=== PATIENT | female | born 1950 | race Caucasian/White ===

== ENCOUNTER 2016-08-26 03:32 | Emergency (ER) | payer SELFPAY, OTHER ==
[2016-08-26] MEDS ORDERED: Nitroglycerin 2% Ointment 1 INCH/1 GM Packet ONE (04:15)
[2016-08-26] MEDS ORDERED: Ondansetron HCl/PF 4 MG/2 ML Vial ONE (04:21)
[2016-08-26] MEDS ORDERED: Lorazepam 2 MG/ML VIAL ONE (04:28)
[2016-08-26 04:30] LABS: #Basophils 0.1 thou/uL (0.0-0.2); #Eosinphils 0.4 thou/uL (0.0-0.7); #Lymphocytes 2.4 thou/uL (1.20-3.40); #Monocytes 0.6 thou/uL (0.11-0.59); #Neutrophils 4.9 thou/uL (1.40-6.50); %Basophils 1.1 % (0.0-1.0); %Eosinophils 4.3 % (0.0-10.0); %Lymphocytes 28.5 % (21.0-51.0); %Monocytes 7.5 % (0.0-10.0); %Neutrophils 58.6 % (42.0-75.0); Hemoglobin 13.5 g/dL (12.0-16.0); Mean Corpuscular HGB CONC 33.8 g/dL (32.0-36.0); Mean Corpuscular Hemoglobin 29.3 pg (27.0-31.0); Mean Corpuscular Volume 86.7 fl (81.0-99.0); Platelet Count 258 thou/uL (130-400); RBC Distribution Width 12.3 % (11.5-14.5); Red Blood Cell (RBC) Count 4.61 mill/uL (4.20-5.40); White Blood Cell (WBC) Count 8.4 thou/uL (4.8-10.8)
[2016-08-26 04:39] LABS: ALT (SGPT) 34 U/L (0-55); AST (SGOT) 19 U/L (5-34); Albumin 4.5 g/dL (3.4-4.8); Alkaline Phosphatase 127 U/L (40-150); Anion Gap 15 mmol/L (10-20); BUN (Urea Nitrogen) 18 mg/dL (9.8-20.1); Calc. Creatinine Clearance 0 mL/min (70-130); Calcium 9.4 mg/dL (7.8-10.44); Carbon Dioxide 25 mmol/L (23-31); Chloride 105 mmol/L (98-107); Estimated GFR-MDRD 71; Globulin 2.3 g/dL (2.4-3.5); Glucose 118 mg/dL (80-115); Potassium 3.5 mmol/L (3.5-5.1); Protein, Total 6.8 g/dL (5.8-8.1); Sodium 141 mmol/L (136-145)
[2016-08-26 04:41] LABS: CKMB 2.3 ng/mL (0-6.6); Troponin I Less than 0.010 ng/mL (< 0.028)
--- NOTE | 2016-08-26 07:58 | RAD ---
PORTABLE CHEST ONE VIEW 08/26/2016 at 4:01 a.m.: HISTORY: Chest pain. FINDINGS: Comparison is made with exam of 03/31/2016. There is continued elevation of the right hemidiaphragm. The heart is enlarged. No confluent areas of consolidation, pneumothorax, juana pleural edema, or pleural effusions are seen. IMPRESSION: No acute process. POS: [facility]
== END 2016-08-26 05:14 | disposition short-term general hospital (02) ==
LOC: MADERS 03:32
DX: I24.9 Acute ischemic heart disease, unspecified (principal); I10 Essential (primary) hypertension; E78.5 Hyperlipidemia, unspecified; I25.2 Old myocardial infarction; Z79.899 Other long term (current) drug therapy
CPT/HCPCS: 71010; 80053; 82553; 83880; 84484; 85025; 85730; 93005; 96374; 96375; J2060; J2405

== ENCOUNTER 2016-10-18 08:24 | Inpatient (IN) | payer OTHER ==
[2016-10-18] MEDS ORDERED: Sodium Chloride 0.9% 1,000 ML BAG ONE (08:47)
[2016-10-18] MEDS ORDERED: Lorazepam 2 MG/ML VIAL ONE (08:59)
[2016-10-18 09:17] LABS: #Basophils 0.1 thou/uL (0.0-0.2); #Lymphocytes 0.8 thou/uL (1.20-3.40); #Monocytes 0.5 thou/uL (0.11-0.59); #Neutrophils 3.3 thou/uL (1.40-6.50); %Basophils 1.2 % (0.0-1.0); %Eosinophils 0.3 % (0.0-10.0); %Lymphocytes 17.4 % (21.0-51.0); %Monocytes 10.4 % (0.0-10.0); %Neutrophils 70.6 % (42.0-75.0); ALT (SGPT) 47 U/L (0-55); AST (SGOT) 36 U/L (5-34); Albumin 4.2 g/dL (3.4-4.8); Alkaline Phosphatase 102 U/L (40-150); Anion Gap 16 mmol/L (10-20); BUN (Urea Nitrogen) 12 mg/dL (9.8-20.1); Calc. Creatinine Clearance 0 mL/min (70-130); Calcium 9.1 mg/dL (7.8-10.44); Carbon Dioxide 21 mmol/L (23-31); Chloride 104 mmol/L (98-107); Estimated GFR-MDRD 70; Globulin 2.6 g/dL (2.4-3.5); Glucose 125 mg/dL (80-115); Hemoglobin 13.8 g/dL (12.0-16.0); Mean Corpuscular HGB CONC 34.5 g/dL (32.0-36.0); Mean Corpuscular Hemoglobin 29.9 pg (27.0-31.0); Mean Corpuscular Volume 86.6 fl (81.0-99.0); Mean Platelet Volume 6.8 fL (7.4-10.4); Platelet Count 192 thou/uL (130-400); Potassium 4.1 mmol/L (3.5-5.1); Protein, Total 6.8 g/dL (5.8-8.1); Red Blood Cell (RBC) Count 4.61 mill/uL (4.20-5.40); Sodium 137 mmol/L (136-145); White Blood Cell (WBC) Count 4.6 thou/uL (4.8-10.8)
[2016-10-18] MEDS ORDERED: Ketorolac Tromethamine 30 MG/ML VIAL ONE (10:00)
[2016-10-18] MEDS ORDERED: Acetaminophen 500 MG TAB ONE (10:01)
--- NOTE | 2016-10-18 10:24 | CT ---
EXAM: NONCONTRAST HEAD CT: HISTORY: Headache. The patient is very anxious and frustrated. COMPARISON: None. CORRELATION: Brain MRI 03/02/11. TECHNIQUE: Noncontrast head CT is performed from the skull base to the skull vertex. FINDINGS: No parenchymal hemorrhage. No extraaxial hematoma. No midline shift. Basilar cisterns are patent. Brain volume, age appropriate. Cortical tam-white matter differentiation is preserved. Ventricles and sulci are patent and symmetric. Periventricular white matter hypodensities due to chronic small-vessel ischemic changes are noted. Calvarium is intact. Adequate aeration of the sinuses and mastoid air cells. IMPRESSION: No acute intracranial process. POS: [facility]
--- NOTE | 2016-10-18 11:29 | RAD ---
FRONTAL VIEW CHEST: COMPARISON: 08/26/16. CLINICAL HISTORY: Cough. FINDINGS: Enlargement of the cardiac silhouette, stable. This obscures the left lung base. Right lung is nirav ar. Pulmonary vasculature is mildly prominent, stable. IMPRESSION: Stable chest. POS: [facility]
[2016-10-18] MEDS ORDERED: Ibuprofen 400 MG TAB ONE (13:28)
[2016-10-18] MEDS ORDERED: Azithromycin 250 MG TAB ONE (14:44)
[2016-10-18] MEDS ORDERED: Acetaminophen 500 MG TAB PO PRN (15:23)
[2016-10-18] MEDS ORDERED: Ondansetron HCl/PF 4 MG/2 ML Vial SLOW IVP PRN (15:26)
[2016-10-18] MEDS ORDERED: Ondansetron ODT 4 MG TAB PO PRN (15:26)
[2016-10-18] MEDS: Sodium Chloride 0.9% 1,000 ML IV SCH (16:22)
[2016-10-18] MEDS: Lisinopril 10 MG TAB PO SCH (20:16)
[2016-10-18] MEDS: Metoprolol Tartrate 50 MG TAB PO SCH (20:16)
[2016-10-18] MEDS: Ibuprofen 600 MG TAB PO PRN (23:41)
[2016-10-19] MEDS: Sodium Chloride 0.9% 1,000 ML IV SCH ×3 (05:00→20:19)
[2016-10-19] MEDS: Lisinopril 10 MG TAB PO SCH ×3 (08:12→20:13)
[2016-10-19] MEDS: Metoprolol Tartrate 50 MG TAB PO SCH ×3 (08:13→20:16)
--- NOTE | 2016-10-19 10:00 | HP ---
CHIEF COMPLAINT: Flu. PRESENT ILLNESS: The patient is a 66-year-old white female who has a history of hypertension, hyper lipidemia, and a distant history of cancer of the breast. The patient lives with her , indep endent of all her ADLs. The patient presented to the emergency room on the afternoon of 10/18/2016 complaining of a 3-4 day history of severe achiness, fatigue, nausea, vomiting, and cough. Also, th e patient said she developed a fever for the last 2 days and had a nonproductive cough and severe he adache. In the emergency room, the patient was very uncomfortable from her headache. She had recei alfonzo Toradol with good relief. She became very anxious while there, but responded very well to Ativa n. The patient underwent evaluation with a chest x-ray which was clear and showed no infiltrate. C T scan of the brain showed no acute abnormalities. Her lab work showed H\T\H of 13.8 and 39.9, whit e cell count 4600, 71% segs, 17% lymphocytes, and platelet count 192,000. Sodium 137, potassium 4.1 , BUN 12, creatinine 0.82, glucose 125, AST 36, albumin 4.2. Her nasal swab for influenza A was neg ative, for influenza B was positive. In the emergency room the patient was started on IV fluids and received the Ativan for the anxiety and the Toradol for the severe headache. The patient seemed to feel much better after this, but was admitted to the hospital because of the weakness, fatigue, and the nausea and vomiting. The patient was continued on the IV fluids. It was opted not to place he r on Tamiflu since she was now on her fourth day of her illness. The patient was given Zofran for t he nausea. The patient was seen early on the morning. 10/19/2016. She was able to relate to me the above hist ory. The patient says her headache is better, although not totally resolved. She still feels achy, but she is not having any more nausea and vomiting, she feels a little bit better, but said she di d run fever during the night. PAST HISTORY: Hypertension, hyperlipidemia, anxiety, hospitalized from 08/26/2016 to 08/28/2016 at [facility] for chest pain. She had a myocardial perfusion imaging that was abnormal. Sh e underwent a heart catheterization that was normal and showed no evidence of coronary artery diseas e. Her echocardiogram showed ejection fraction of 60-65%. The patient's chest pain was felt to be noncardiac and she has had no recurrence. The patient had a right mastectomy in 2006 for cancer of the breast and has had no recurrence. PRESENT MEDICINES: Aspirin 81 mg daily, lisinopril 20 mg b.i.d., metoprolol tartrate 50 mg b.i.d. ALLERGIES: No known allergy. REVIEW OF SYSTEMS: The patient said she has been running fever for the last couple of days. She do es not think her weight has changed. HEAD AND NECK: See present illness. PULMONARY: The patient had a dry cough, no shortness of breath. CARDIOVASCULAR: No chest pain. GASTROINTESTINAL: See present illness. : No complaints. HABITS: Alcohol none. Tobacco none. SOCIAL HISTORY: The patient is . She lives with her . 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 CODE STATUS: Full code. PHYSICAL EXAMINATION: GENERAL: Shows a 66-year-old white female who is lying in bed, is alert and oriented x3. She looks weak and says she does not feel well. VITAL SIGNS: Shows a temperature of 99, during the night her temperature had risen to 100.8, pulse 76, blood pressure 163/75, respirations 20, O2 sat 93% on 3 liters, blood pressure 145/74. Weight 2 13. HEAD: Normocephalic. EYES: Pupils are equal, round, and reactive. Sclerae nonicteric. EARS: TMs are clear. NOSE: Normal. MOUTH AND THROAT: Normal. NECK: Carotids are equal and strong, no bruits. Thyroid not enlarged. LUNGS: Clear. HEART: Regular rate, no murmurs. ABDOMEN: Obese. The abdomen is soft with no organomegaly, nor areas of tenderness. EXTREMITIES: No edema. SKIN: No rash. NEUROLOGIC: Patient is alert and oriented x3. There is no focal weakness. IMPRESSION: 1. Influenza type B. A. Improved with no vomiting as of the morning of 10/19/2016. 2. Hypertension. 3. Hyperlipidemia. PLAN: Advance activities as tolerated. Continue the Tylenol and ibuprofen as needed for the aches and pains and fever. Advance diet. We will reduce fluids to 50 mL per hour.
[2016-10-19] MEDS: Ibuprofen 600 MG TAB PO PRN (12:05)
[2016-10-19 20:52] VITALS: BMI 40.4
[2016-10-19] MEDS: Lorazepam 1 MG TAB PO PRN (23:13)
[2016-10-20 06:19] LABS: Anion Gap 13 mmol/L (10-20); BUN (Urea Nitrogen) 10 mg/dL (9.8-20.1); Calc. Creatinine Clearance 109 mL/min (70-130); Calcium 8.4 mg/dL (7.8-10.44); Carbon Dioxide 22 mmol/L (23-31); Cardiac Risk 7.2 (Less than 4.5); Chloride 110 mmol/L (98-107); Cholesterol 151 mg/dL (< 200 Desired); Estimated GFR-MDRD 75; Glucose 95 mg/dL (80-115); HDL Cholesterol 21 mg/dL (>60 Neg Risk); LDL Cholesterol, Calculated 106 mg/dL; Potassium 3.9 mmol/L (3.5-5.1); Sodium 141 mmol/L (136-145); Triglycerides 121 mg/dL (Less than 150)
[2016-10-20 06:32] LABS: Band 3 % (5-11); Eosinophils 1 % (0-10); Hemoglobin 12.3 g/dL (12.0-16.0); Lymphocytes 62 % (21-51); MDiff Complete? YES; Mean Corpuscular HGB CONC 33.5 g/dL (32.0-36.0); Mean Corpuscular Hemoglobin 29.5 pg (27.0-31.0); Mean Corpuscular Volume 88.2 fl (81.0-99.0); Mean Platelet Volume 6.1 fL (7.4-10.4); Monocytes 3 % (0-10); Neutrophil 31 % (42-75); Platelet Count 148 thou/uL (130-400); RBC Distribution Width 12.5 % (11.5-14.5); Red Blood Cell (RBC) Count 4.18 mill/uL (4.20-5.40); White Blood Cell (WBC) Count 2.8 thou/uL (4.8-10.8)
[2016-10-20] MEDS: Ibuprofen 600 MG TAB PO PRN ×3 (06:33→21:37)
[2016-10-20] MEDS: Lisinopril 10 MG TAB PO SCH ×2 (09:32→20:19)
[2016-10-20] MEDS: Metoprolol Tartrate 50 MG TAB PO SCH ×2 (09:33→20:23)
--- NOTE | 2016-10-20 10:55 | PRG ---
DATE OF SERVICE: 10/20/2016 SUBJECTIVE: The patient said she is feeling a little better today. Still has had a lot of aches an d pains and last night could not go to sleep. She was given Ativan and after this, she seemed to ca lm down and rest very well. She said she has had some aches and pains in her neck. The Gaymar mois t heat has helped. The patient said she is taking fluids good, but still appetite not very good. S he is still is very tired. OBJECTIVE: The patient is sitting up in a bedside chair with the Gaymar pump on her neck. She look s better, but still looks tired. Her vital signs show a temperature of 98.8, pulse 69, respirations 18, O2 sat 94%, blood pressure 139/65. Lungs are clear. Heart, regular rate. Lab shows H\T\H of 12.3 and 36.9 with WBC count 2800 with 31% segs, 3% bands, 62% lymphocytes, and a platelet count of 148,000. Her sodium is 141, potassium 3.9, BUN 10, creatinine 0.77, glucose 95. Cholesterol 151, triglycerides 121, LDL 106, HDL 21. ASSESSMENT: 1. Influenza type B. A. Improved, but still has marked fatigue and myalgias are a little better. She remains afebri le as of 10/20/2016. 2. Hypertension. 3. Hyperlipidemia. PLAN: Will gradually increase activities, continue using the acetaminophen and the ibuprofen for th e aches and pains. If the patient continues to do well, anticipate probable discharge tomorrow or t he following day. The patient still had a temperature last evening up to 100.2. Her CBC showed jaguar dence of a neutropenia from the influenza. Will recheck CBC in the morning.
[2016-10-20] MEDS: Albuterol Sulfate 2.5 mg/3 ml Neb NEB SCH ×2 (19:02→21:49)
[2016-10-20] MEDS: Lorazepam 1 MG TAB PO PRN (21:37)
[2016-10-21 05:17] LABS: Anion Gap 13 mmol/L (10-20); BUN (Urea Nitrogen) 10 mg/dL (9.8-20.1); Calc. Creatinine Clearance 115 mL/min (70-130); Calcium 8.5 mg/dL (7.8-10.44); Carbon Dioxide 22 mmol/L (23-31); Chloride 110 mmol/L (98-107); Estimated GFR-MDRD 80; Glucose 93 mg/dL (80-115); Potassium 3.8 mmol/L (3.5-5.1); Sodium 141 mmol/L (136-145)
[2016-10-21 05:58] LABS: Eosinophils 3 % (0-10); Hemoglobin 12.6 g/dL (12.0-16.0); Lymphocytes 43 % (21-51); MDiff Complete? YES; Mean Corpuscular HGB CONC 33.6 g/dL (32.0-36.0); Mean Corpuscular Hemoglobin 29.5 pg (27.0-31.0); Mean Corpuscular Volume 87.8 fl (81.0-99.0); Mean Platelet Volume 6.4 fL (7.4-10.4); Monocytes 5 % (0-10); Neutrophil 40 % (42-75); PLT Morphology Comment Appears Adequate; Platelet Count 128 thou/uL (130-400); RBC Distribution Width 12.1 % (11.5-14.5); RBC Morphology Normal; Reactive Lymphocytes 9 % (0-10); Red Blood Cell (RBC) Count 4.27 mill/uL (4.20-5.40)
[2016-10-21] MEDS ORDERED: Albuterol Sulfate 2.5 mg/3 ml Neb NEB PRN ×2 (07:32→07:35)
[2016-10-21] MEDS: Albuterol Sulfate 2.5 mg/3 ml Neb NEB SCH ×4 (08:31→21:29)
[2016-10-21] MEDS: Lisinopril 10 MG TAB PO SCH ×2 (08:32→19:35)
[2016-10-21] MEDS: Metoprolol Tartrate 50 MG TAB PO SCH ×2 (08:32→19:35)
--- NOTE | 2016-10-21 08:34 | RAD ---
CHEST PA AND LATERAL: History: 66-year-old female, follow up cough. Comparison: 10-18-16 FINDINGS: Borderline cardiomegaly. Patient has a very large body habitus which somewhat lowers the sensitivity of this study. Minimal increased linear and interstitial markings bilaterally without confluent pne umonia, overt edema, or pleural effusion. IMPRESSION: Stable mildly increased bronchovascular markings bilaterally. Borderline cardiomegaly. No confluent pneumonia, overt edema, or other new process. POS: [facility]
--- NOTE | 2016-10-21 10:36 | PRG ---
DATE OF SERVICE: 10/21/2016 SUBJECTIVE: The patient said she is feeling a little better. Late yesterday afternoon, she develop ed increased cough with a vomiting episode and was wheezing and felt short of breath. She was given a nebulization treatments with albuterol and said this really helped. She had an uneventful night. This morning she is feeling a little better. She is still coughing some, still thinks she is havi ng a little wheezing. OBJECTIVE: The patient is sitting up in a chair. She is alert and appears in no acute distress. T emp 98.5, pulse 62, respirations 20, O2 sat 98% on room air, blood pressure 169/79. Her lungs have moderate breath sounds was some expiratory wheeze, particularly on forced expiration. Heart, regula r rate. Lab shows an H\T\H of 12.6 and 37.5. White cell count is 3000 with 40% segs, 43% lymphocytes, and p latelet count of 128,000. Low WBC count probably from the influenza. Sodium 141, potassium 3.8, BU N 10, creatinine 0.73, glucose 93. Her chest x-ray shows a little prominence of her pulmonary vascu lature, heart may be a little enlarged, no definite infiltrate seen. On the chest x-ray the heart a ppears a little prominent in size and obscures the left costophrenic angle and pulmonary vascular mi ldly prominent. No significant change compared to chest x-ray from 10/18/2016. ASSESSMENT: 1. Influenza type B. A. Complicated by an asthmatic bronchitis as of 10/21/2016. 2. Hypertension. 3. Hyperlipidemia. PLAN: The patient was doing a little better and then developed the asthmatic bronchitis. We will p lace her on prednisone and continue nebulization treatments that have been started and will cover he r with Levaquin in the event that there is any evolving bacterial infection, particularly sense left costal margin is obscured by the heart.
[2016-10-21] MEDS ORDERED: Benzonatate 100 MG CAP PO PRN (14:42)
[2016-10-21] MEDS: Lorazepam 1 MG TAB PO PRN (21:29)
[2016-10-22] MEDS ORDERED: Sodium Chloride 0.9% 1,000 ML BAG ONE (05:54)
[2016-10-22] MEDS ORDERED: predniSONE 20 MG TAB PO SCH (08:00)
[2016-10-22] MEDS: Lisinopril 10 MG TAB PO SCH (08:25)
[2016-10-22 08:26] VITALS: BP 174/71; TEMP 98.6
[2016-10-22] MEDS: Albuterol Sulfate 2.5 mg/3 ml Neb NEB SCH (08:26)
[2016-10-22] MEDS: Metoprolol Tartrate 50 MG TAB PO SCH (08:26)
--- NOTE | 2016-10-22 09:06 | DIS ---
FINAL DIAGNOSES: 1. Influenza type B. A. Complicated by asthmatic bronchitis. 2. Hypertension. 3. Hyperlipidemia. REASON FOR ADMISSION: The patient is a 66-year-old white female who has a history of hypertension, hyperlipidemia, and a distant history of cancer of the breast. The patient lives with her a nd is independent of her ADLs. The patient presented to the emergency room on the afternoon of 10/03 complaining of a 3-4 day history of severe achiness, fatigue, nausea and vomiting and a bad c ough. She had also developed a very severe headache aggravated by the coughing spells. She was tamy luated in the emergency room. CT scan of the brain was done due to the severe headache, no acute ab normality was seen. Her H\T\H was 13.8 and 39.9 with a white cell count 4600 with 71% segs, 17% lym phocytes, platelet count 192,000. Her nasal swab was positive for influenza B. Chest x-ray was nirav ar. The patient was started on IV fluids, received Ativan since she was extremely anxious in the em ergency room and a dose of Toradol, with this she was much more comfortable. It was elected to admi t her because of the severe symptoms and the inability to control these at home and the vomiting. HOSPITAL COURSE: The patient was continued on the IV fluids, was given Tylenol and ibuprofen for th e achiness and fever and had Zofran as needed for the vomiting. The patient's symptoms gradually im proved, but cough did not improve. She developed some wheezing and shortness breath with exertion. Her chest x-ray remained clear. She also saw a drop in her white blood cell count to 2800 on 10/20, with 31% lymphocytes, and this hunter to 3000 on 10/21/2016, with 40% neutrophils, 43% lymphocy miles, and platelet count 128. The patient developed the wheezing responsive to the nebulizing treatm ents with albuterol. The patient had influenza and this was complicated by an asthmatic bronchitis. This was managed with nebulizing treatments with albuterol, Levaquin 500 mg daily and she was star davina on prednisone 40 mg daily, which will be tapered after 3 days. The patient showed marked improv ement over the next 48 hours. She also was given Tessalon Perles for the cough which she said worke d very well. On 10/22/2016 she was feeling much better. The achiness was resolving, the headaches had resolved. Her cough was much better and she was no longer wheezing. She had no more vomiting s pells. She felt like she would be fine at home. Her condition had improved such that it was felt t hat she can now be managed safely at home. Her pressure was a little elevated on the morning of , but she had not yet had her blood pressure medicine. This will be followed up as an outpat ient. DISPOSITION: DIET: Regular diet. No added salt. ACTIVITIES: Gradually increase activities back to her baseline. MEDICATIONS: Acetaminophen 325 mg 2 every 4 hours as needed, albuterol inhaler 2 puffs q.i.d. and e very 4 hours as needed, aspirin 81 mg daily, Tessalon 200 mg every 8 hours as needed, Levaquin 500 m g daily x7 days, lisinopril 20 mg b.i.d., metoprolol tartrate 50 mg b.i.d., prednisone 5 mg 7 tablet s initially then taper by 1 a day over a 6 day period. Follow up in my office in 2 weeks unless the re is interval problem. CODE STATUS: Full code.
== END 2016-10-22 11:15 | disposition home or self-care (01) | DRG 195 ==
LOC: MADERS 08:24 → MADMS 14:11
PROVIDERS: ADMIT Family Medicine; ATTEND Family Medicine
DX: J10.1 Influenza due to other identified influenza virus with other respiratory manifestations (principal); I10 Essential (primary) hypertension; R09.02 Hypoxemia; J45.909 Unspecified asthma, uncomplicated; E78.5 Hyperlipidemia, unspecified; Z85.3 Personal history of malignant neoplasm of breast; F41.9 Anxiety disorder, unspecified
CPT/HCPCS: 36415; 70450; 71010; 71020; 80048; 80053; 80061; 83880; 85025; 96361; 96374; 96375; J1885; J2060; J2405; J7050; J7506; J7611

== ENCOUNTER 2016-10-22 20:24 | Emergency (ER) | payer OTHER ==
[2016-10-22] MEDS ORDERED: Meclizine HCl 25 MG TAB ONE (23:33)
[2016-10-22] MEDS ORDERED: Ondansetron ODT 4 MG TAB ONE (23:33)
[2016-10-23] MEDS ORDERED: Benzonatate 100 MG CAP ONE (00:41)
== END 2016-10-23 00:45 | disposition home or self-care (01) ==
LOC: MADERS 20:24
DX: R42 Dizziness and giddiness (principal); R11.0 Nausea; I25.2 Old myocardial infarction; E78.5 Hyperlipidemia, unspecified; I10 Essential (primary) hypertension; Z79.82 Long term (current) use of aspirin; Z79.899 Other long term (current) drug therapy
CPT/HCPCS: 99284; Q0162

== ENCOUNTER 2018-01-20 16:36 | Emergency (ER) | payer OTHER, SELFPAY | END 2018-01-20 17:25 | disposition home or self-care (01) | LOC: MADERS 16:36 | DX: F41.0 Panic disorder [episodic paroxysmal anxiety] (principal); R42 Dizziness and giddiness; E78.5 Hyperlipidemia, unspecified; I10 Essential (primary) hypertension; E07.9 Disorder of thyroid, unspecified; T50.995A Adverse effect of other drugs, medicaments and biological substances, initial encounter; Z79.82 Long term (current) use of aspirin; Z79.899 Other long term (current) drug therapy; Z85.3 Personal history of malignant neoplasm of breast | CPT/HCPCS: 99283 ==

== ENCOUNTER 2018-05-28 04:12 | Emergency (ER) | payer SELFPAY ==
[2018-05-28] MEDS ORDERED: Nitroglycerin 0.4 MG TAB (25 Tab Bottle) ONE (04:59)
== END 2018-05-28 05:05 | disposition home or self-care (01) ==
LOC: MADERS 04:12
DX: I10 Essential (primary) hypertension (principal); I25.2 Old myocardial infarction; E78.5 Hyperlipidemia, unspecified; F41.9 Anxiety disorder, unspecified; Z79.899 Other long term (current) drug therapy; Z79.82 Long term (current) use of aspirin
CPT/HCPCS: 99283

== ENCOUNTER 2018-06-04 18:41 | Emergency (ER) | payer SELFPAY | END 2018-06-04 19:33 | disposition home or self-care (01) | LOC: MADERS 18:41 | DX: I10 Essential (primary) hypertension (principal); I25.2 Old myocardial infarction; E78.5 Hyperlipidemia, unspecified; F41.9 Anxiety disorder, unspecified; Z79.899 Other long term (current) drug therapy; Z79.82 Long term (current) use of aspirin | CPT/HCPCS: 99283 ==

== ENCOUNTER 2018-06-11 17:57 | Emergency (ER) | payer SELFPAY ==
[2018-06-11 18:12] LABS: #Basophils 0.1 thou/uL (0.0-0.2); #Eosinphils 0.4 thou/uL (0.0-0.7); #Lymphocytes 3.3 thou/uL (1.20-3.40); #Monocytes 0.7 thou/uL (0.11-0.59); #Neutrophils 4.6 thou/uL (1.40-6.50); %Basophils 0.9 % (0.0-1.0); %Eosinophils 4.9 % (0.0-10.0); %Lymphocytes 36.3 % (21.0-51.0); %Monocytes 7.2 % (0.0-10.0); %Neutrophils 50.7 % (42.0-75.0); Hemoglobin 14.5 g/dL (12.0-16.0); Mean Corpuscular HGB CONC 33.1 g/dL (32.0-36.0); Mean Corpuscular Hemoglobin 28.9 pg (27.0-31.0); Mean Corpuscular Volume 87.2 fL (78.0-98.0); Mean Platelet Volume 6.8 fL (7.4-10.4); Platelet Count 285 thou/uL (130-400); Red Blood Cell (RBC) Count 5.01 mill/uL (4.20-5.40); White Blood Cell (WBC) Count 9.1 thou/uL (4.8-10.8)
[2018-06-11 18:30] LABS: ALT (SGPT) 60 U/L (8-55); AST (SGOT) 30 U/L (5-34); Albumin 4.6 g/dL (3.4-4.8); Alkaline Phosphatase 145 U/L (40-150); Anion Gap 16 mmol/L (10-20); BUN (Urea Nitrogen) 15 mg/dL (9.8-20.1); Bilirubin, Total 0.7 mg/dL (0.2-1.2); Calc. Creatinine Clearance 0 mL/min (70-130); Calcium 9.8 mg/dL (7.8-10.44); Carbon Dioxide 23 mmol/L (23-31); Chloride 108 mmol/L (98-107); Estimated GFR-MDRD 63; Globulin 3.3 g/dL (2.4-3.5); Glucose 144 mg/dL (80-115); Potassium 3.6 mmol/L (3.5-5.1); Protein, Total 7.9 g/dL (6.0-8.3); Sodium 143 mmol/L (136-145)
--- NOTE | 2018-06-11 18:32 | RAD ---
PORTABLE AP CHEST X-RAY 06/11/18 HISTORY: Chest pain. COMPARISON: 10/18/16. FINDINGS: The cardiac silhouette is magnified by projection. Pulmonary vasculature is within normal limits. The re is mild elevation of the right hemidiaphragm. The lungs are otherwise clear. There has been no int erval change from the prior exam. IMPRESSION: No acute cardiopulmonary process. POS: [facility]
[2018-06-11] MEDS ORDERED: Metoprolol Tartrate 5 MG/5 ML VIAL ONE (19:05)
[2018-06-11] MEDS ORDERED: Metoprolol Tartrate 50 MG TAB ONE (19:05)
== END 2018-06-11 19:23 | disposition short-term general hospital (02) ==
LOC: MADERS 17:57
DX: R07.89 Other chest pain (principal); E78.5 Hyperlipidemia, unspecified; I10 Essential (primary) hypertension; I25.2 Old myocardial infarction; F41.9 Anxiety disorder, unspecified; Z79.899 Other long term (current) drug therapy; Z79.82 Long term (current) use of aspirin
CPT/HCPCS: 71045; 80053; 84484; 85025; 93005; 94760; 96374

== ENCOUNTER 2018-10-31 20:23 | Emergency (ER) | payer SELFPAY ==
[2018-10-31] MEDS ORDERED: Ondansetron ODT 4 MG TAB ONE (20:55)
[2018-10-31 22:36] LABS: #Lymphocytes 0.9 thou/uL (1.20-3.40); #Monocytes 0.1 thou/uL (0.11-0.59); #Neutrophils 6.1 thou/uL (1.40-6.50); %Basophils 0.2 % (0.0-1.0); %Lymphocytes 12.4 % (21.0-51.0); %Neutrophils 86.3 % (42.0-75.0); Hemoglobin 13.2 g/dL (12.0-16.0); Mean Corpuscular HGB CONC 32.2 g/dL (32.0-36.0); Mean Corpuscular Hemoglobin 27.5 pg (27.0-31.0); Mean Corpuscular Volume 85.4 fL (78.0-98.0); Mean Platelet Volume 5.9 fL (7.4-10.4); Platelet Count 247 thou/uL (130-400); RBC Distribution Width 12.4 % (11.5-14.5); Red Blood Cell (RBC) Count 4.81 mill/uL (4.20-5.40)
[2018-10-31 22:55] LABS: ALT (SGPT) 22 U/L (8-55); AST (SGOT) 15 U/L (5-34); Albumin 4.5 g/dL (3.4-4.8); Alkaline Phosphatase 107 U/L (40-150); Anion Gap 13 mmol/L (10-20); BUN (Urea Nitrogen) 16 mg/dL (9.8-20.1); Calc. Creatinine Clearance 0 mL/min (70-130); Calcium 9.7 mg/dL (7.8-10.44); Carbon Dioxide 22 mmol/L (23-31); Chloride 109 mmol/L (98-107); Estimated GFR-MDRD 68; Globulin 2.8 g/dL (2.4-3.5); Glucose 206 mg/dL (80-115); Potassium 4.6 mmol/L (3.5-5.1); Protein, Total 7.3 g/dL (6.0-8.3); Sodium 139 mmol/L (136-145)
--- NOTE | 2018-10-31 23:24 | RAD ---
Radiograph chest one view: 10/31/2018 10:43 PM history: 68-year-old female with chest pain. Allergic reaction to steroids. FINDINGS: Magnification of the cardiac shadow. Mild pulmonary vascular prominence. Prominent interstitial andrade ngs. No juana pulmonary alveolar edema or consolidation. No pneumothorax. IMPRESSION: Prominent interstitial markings. No consolidation.
[2018-10-31] MEDS ORDERED: Diazepam 5 MG TAB ONE (23:58)
== END 2018-11-01 08:39 | disposition home or self-care (01) ==
LOC: MADERS 20:23
DX: R42 Dizziness and giddiness (principal); I25.2 Old myocardial infarction; E78.5 Hyperlipidemia, unspecified; I10 Essential (primary) hypertension; F41.9 Anxiety disorder, unspecified; Z79.899 Other long term (current) drug therapy; Z79.82 Long term (current) use of aspirin
CPT/HCPCS: 36415; 71045; 80053; 83880; 84484; 85025; 93005; Q0162

== ENCOUNTER 2018-12-04 18:13 | Emergency (ER) | payer SELFPAY | END 2018-12-04 18:48 | disposition home or self-care (01) | LOC: MADERS 18:13 | DX: I10 Essential (primary) hypertension (principal); I25.2 Old myocardial infarction; E78.5 Hyperlipidemia, unspecified; F41.9 Anxiety disorder, unspecified; Z79.899 Other long term (current) drug therapy; Z79.82 Long term (current) use of aspirin | CPT/HCPCS: 99283 ==

== ENCOUNTER 2018-12-14 18:44 | Emergency (ER) | payer MEDICARE, SELFPAY | END 2018-12-14 19:25 | disposition home or self-care (01) | LOC: MADERS 18:44 | DX: I10 Essential (primary) hypertension (principal); I25.2 Old myocardial infarction; E78.5 Hyperlipidemia, unspecified; F41.9 Anxiety disorder, unspecified; Z79.899 Other long term (current) drug therapy; Z79.82 Long term (current) use of aspirin | CPT/HCPCS: 99283 ==

== ENCOUNTER 2019-06-24 09:12 | Emergency (ER) | payer SELFPAY ==
[2019-06-24 09:34] LABS: #Basophils 0.1 thou/uL (0.0-0.2); #Eosinphils 0.2 thou/uL (0.0-0.7); #Lymphocytes 2.8 thou/uL (1.20-3.40); #Monocytes 0.7 thou/uL (0.11-0.59); #Neutrophils 4.4 thou/uL (1.40-6.50); %Basophils 1.2 % (0.0-1.0); %Eosinophils 2.9 % (0.0-10.0); %Lymphocytes 34.2 % (21.0-51.0); %Monocytes 8.1 % (0.0-10.0); %Neutrophils 53.6 % (42.0-75.0); Hemoglobin 13.9 g/dL (12.0-16.0); Mean Corpuscular HGB CONC 31.8 g/dL (32.0-36.0); Mean Corpuscular Hemoglobin 28.1 pg (27.0-31.0); Mean Corpuscular Volume 88.5 fL (78.0-98.0); Mean Platelet Volume 6.8 fL (7.4-10.4); Platelet Count 266 thou/uL (130-400); RBC Distribution Width 12.4 % (11.5-14.5); Red Blood Cell (RBC) Count 4.93 mill/uL (4.20-5.40); White Blood Cell (WBC) Count 8.3 thou/uL (4.8-10.8)
--- NOTE | 2019-06-24 09:35 | RAD ---
EXAM: Portable chest PROVIDED CLINICAL HISTORY: Chest pain COMPARISON: 10/31/2018 FINDINGS: Evaluation is limited by patient body habitus. The cardiac silhouette appears enlarged. Prominence of the pulmonary vasculature is redemonstrated. Left basilar pleural and/or parenchymal opacity cannot be excluded. No evidence for pneumothorax. IMPRESSION: Limited exam with left basilar pleural and/or parenchymal opacity not excluded.
[2019-06-24] MEDS ORDERED: Aspirin Chewable 81 MG TAB ONE (09:36)
[2019-06-24] MEDS ORDERED: Nitroglycerin 2% Ointment 1 INCH/1 GM Packet ONE (09:36)
[2019-06-24 09:53] LABS: ALT (SGPT) 23 U/L (8-55); AST (SGOT) 16 U/L (5-34); Albumin 4.6 g/dL (3.4-4.8); Alkaline Phosphatase 113 U/L (40-110); Anion Gap 14 mmol/L (10-20); BUN (Urea Nitrogen) 13 mg/dL (9.8-20.1); Bilirubin, Total 1.2 mg/dL (0.2-1.2); Calc. Creatinine Clearance 0 mL/min (70-130); Calcium 9.6 mg/dL (7.8-10.44); Carbon Dioxide 23 mmol/L (23-31); Chloride 109 mmol/L (98-107); Estimated GFR-MDRD 56; Globulin 2.6 g/dL (2.4-3.5); Glucose 153 mg/dL (80-115); Protein, Total 7.2 g/dL (6.0-8.3); Sodium 142 mmol/L (136-145)
[2019-06-24] MEDS ORDERED: Lorazepam 1 MG TAB ONE (10:46)
== END 2019-06-24 11:38 | disposition short-term general hospital (02) ==
LOC: MADERS 09:12
DX: R07.9 Chest pain, unspecified (principal); R06.02 Shortness of breath; R11.0 Nausea; I25.2 Old myocardial infarction; E78.5 Hyperlipidemia, unspecified; E78.00 Pure hypercholesterolemia, unspecified; I10 Essential (primary) hypertension; F41.9 Anxiety disorder, unspecified; Z79.899 Other long term (current) drug therapy; Z79.82 Long term (current) use of aspirin
CPT/HCPCS: 71045; 80053; 83880; 84484; 85025; 93005

== ENCOUNTER 2020-02-24 09:05 | Emergency (ER) | payer SELFPAY ==
--- NOTE | 2020-02-24 09:49 | RAD ---
Chest AP view INDICATION: Chest pain COMPARISON: June 24, 2019 FINDINGS: Lungs: The lungs are clear Cardiac silhouette: Stable mild cardiomegaly Pulmonary vasculature: Normal Pleural spaces: No pleural effusion or pneumothorax is demonstrated. Upper abdomen: No abnormality seen. Osseous structures: No acute osseous abnormality. Additional findings: None. IMPRESSION: Stable mild cardiomegaly. No acute cardiopulmonary abnormality.
[2020-02-24 10:21] LABS: ALT (SGPT) 25 U/L (8-55); AST (SGOT) 17 U/L (5-34); Albumin 4.6 g/dL (3.4-4.8); Alkaline Phosphatase 118 U/L (40-110); Anion Gap 14 mmol/L (10-20); BUN (Urea Nitrogen) 15 mg/dL (9.8-20.1); Bilirubin, Total 0.9 mg/dL (0.2-1.2); CK (CPK) 73 U/L (29-168); Calc. Creatinine Clearance 0 mL/min (70-130); Calcium 9.6 mg/dL (7.8-10.44); Carbon Dioxide 25 mmol/L (23-31); Chloride 108 mmol/L (98-107); Estimated GFR-MDRD 61; Globulin 2.9 g/dL (2.4-3.5); Glucose 141 mg/dL (80-115); Lipase 12 U/L (8-78); Protein, Total 7.5 g/dL (6.0-8.3); Sodium 143 mmol/L (136-145)
[2020-02-24 10:27] LABS: #Basophils 0.1 thou/uL (0.0-0.2); #Eosinphils 0.1 thou/uL (0.0-0.7); #Lymphocytes 1.6 thou/uL (1.20-3.40); #Monocytes 0.4 thou/uL (0.11-0.59); #Neutrophils 4.6 thou/uL (1.40-6.50); %Basophils 0.9 % (0.0-1.0); %Eosinophils 2.1 % (0.0-10.0); %Lymphocytes 23.4 % (21.0-51.0); %Monocytes 5.2 % (0.0-10.0); %Neutrophils 68.3 % (42.0-75.0); Hemoglobin 14.4 g/dL (12.0-16.0); Mean Corpuscular HGB CONC 31.6 g/dL (32.0-36.0); Mean Corpuscular Hemoglobin 27.4 pg (27.0-31.0); Mean Corpuscular Volume 86.6 fL (78.0-98.0); Mean Platelet Volume 7.5 fL (7.4-10.4); Platelet Count 277 thou/uL (130-400); RBC Distribution Width 12.4 % (11.5-14.5); Red Blood Cell (RBC) Count 5.27 mill/uL (4.20-5.40); White Blood Cell (WBC) Count 6.7 thou/uL (4.8-10.8)
[2020-02-24] MEDS ORDERED: Aspirin Chewable 81 MG TAB ONE (11:41)
== END 2020-02-24 13:10 | disposition short-term general hospital (02) ==
LOC: MADERS 09:05
DX: R07.9 Chest pain, unspecified (principal); I25.2 Old myocardial infarction; E78.5 Hyperlipidemia, unspecified; I10 Essential (primary) hypertension; F41.9 Anxiety disorder, unspecified; Z79.899 Other long term (current) drug therapy; Z79.82 Long term (current) use of aspirin
CPT/HCPCS: 71045; 80053; 82550; 83690; 84484; 85025; 85379; 93005; 94760